=== PATIENT | male | born 2000 | race African-American/Black ===

== ENCOUNTER 2022-10-15 11:34 | Emergency (ER) | payer OTHER ==
[~2022-10-15] VITALS: Ht 182.9 cm; Wt 90.5 kg
[2022-10-15 15:01] VITALS: BP 129/61; TEMP 97.8; O2SAT 100
== END 2022-10-15 15:09 | disposition home or self-care (01) ==
LOC: M ED 11:34
DX: S80.911A Unspecified superficial injury of right knee, initial encounter (principal); X50.0XXA Overexertion from strenuous movement or load, initial encounter; Y92.009 Unspecified place in unspecified non-institutional (private) residence as the place of occurrence of the external cause; Y93.89 Activity, other specified; Y99.8 Other external cause status